=== PATIENT | male | born 1990 | race Two or more races ===

== ENCOUNTER 2020-08-12 00:21 | Emergency (ER) | payer OTHER ==
[~2020-08-12] VITALS: Ht 167.6 cm; Wt 90.7 kg
[2020-08-12] MEDS ORDERED: BUPIVACAINE MPF 0.25% 10 ML VIAL. IJ ONE (00:30)
[2020-08-12] MEDS ORDERED: HYDROcodone/APAP 10/325 1 TAB TABLET PO ONE (00:45)
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
[2020-08-12] MEDS ORDERED: DIPH,PERTUSS(ACELL),TET VAC/PF 0.5 ML SYRINGE. VAX IM ONE ×2 (00:59→01:15)
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
[2020-08-12] MEDS ORDERED: AMPICILLIN/SULBACTAM 3 GM in IV NORMAL SALINE 100ML 100 ML IV ONE (01:15)
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
[2020-08-12] MEDS ORDERED: NEOMY/BACITR/POLYMYXIN OINT PACKET. TP ONE (02:15)
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
[2020-08-12 02:30] VITALS: BP 137/90
== END 2020-08-12 02:37 | disposition short-term general hospital (02) ==
LOC: ER 00:21 → EEVIPCON 00:21 → ER 02:37
DX: S02.31XB Fracture of orbital floor, right side, initial encounter for open fracture (principal); S52.125A Nondisplaced fracture of head of left radius, initial encounter for closed fracture; M54.2 Cervicalgia; Y08.89XA Assault by other specified means, initial encounter; Y93.89 Activity, other specified; Y92.89 Other specified places as the place of occurrence of the external cause; Y99.8 Other external cause status
CPT/HCPCS: 12011; 29105; 70450; 70486; 72125; 73080; 73090; 73110; 90471; 90715; 96365; 99285; J0295; J3490